=== PATIENT | male | born 1995 | race Caucasian/White ===

== ENCOUNTER 2017-03-04 05:57 | Outpatient (CLI) | payer SELFPAY | END 2017-03-04 05:58 | disposition EMS.NT | LOC: EMS 05:57 | PROVIDERS: ATTEND Surgery | DX: Z04.1 Encounter for examination and observation following transport accident (principal); V47.0XXA Car driver injured in collision with fixed or stationary object in nontraffic accident, initial encounter; Y93.84 Activity, sleeping; Y92.009 Unspecified place in unspecified non-institutional (private) residence as the place of occurrence of the external cause ==

== ENCOUNTER 2023-02-06 18:12 | Outpatient (CLI) | payer OTHER ==
--- NOTE | 2023-02-07 09:42 | XRAY Report ---
PROCEDURE: Hip w/Pelvis 2-3V RT INDICATIONS: STRAIN OF MUSCLE OF RIGHT HIP AND THIGH TECHNIQUE: AP pelvis with lateral view(s) of the right hip(s). COMPARISON: None. FINDINGS: Bones: No displaced fracture or dislocation. Soft tissues: No suspicious soft tissue calcifications or masses. IMPRESSION: No acute radiographic abnormality. No high-grade degenerative changes. If there is high concern for f urther derangement, consider MRI evaluation. Reviewed by: Jasper Rincon MD on 02/07/2023 9:41 AM PDT Approved by: Jasper Rincon MD on 02/07/2023 9:41 AM PDT Station ID: [id number]
== END 2023-02-06 23:59 | disposition home or self-care (01) ==
LOC: DI.S 18:12
PROVIDERS: ATTEND Physician Assistant
DX: S76.319A Strain of muscle, fascia and tendon of the posterior muscle group at thigh level, unspecified thigh, initial encounter (principal)